=== PATIENT | female | born 1995 | race Caucasian/White ===

== ENCOUNTER 2017-03-22 14:53 | Emergency (ER) | payer OTHER, MEDICAID ==
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
[2017-03-22] MEDS ORDERED: MOTRIN PO ONE (20:32)
[2017-03-22 21:25] VITALS: BP 98/68
== END 2017-03-22 21:35 | disposition home or self-care (01) ==
LOC: ED 14:53
DX: G44.319 Acute post-traumatic headache, not intractable (principal); S09.90XA Unspecified injury of head, initial encounter; M54.5 Low back pain; M54.2 Cervicalgia; V49.9XXA Car occupant (driver) (passenger) injured in unspecified traffic accident, initial encounter; Y93.89 Activity, other specified; Y99.8 Other external cause status; Y92.410 Unspecified street and highway as the place of occurrence of the external cause
CPT/HCPCS: 99282